=== PATIENT | male | born 1965 | race African-American/Black ===

== ENCOUNTER → 2021-03-11 | Day surgery (SDC) | payer OTHER ==
[~2021-03-11] MED LIST: AMLODIPINE BESY10 MG PO; ATORVASTATIN CA20 MG PO; HYGROTON25 MG PO; LIDOCAINE HCL 2% LOCAL INJ 5 ML SDV VIAL INJ ONE; PROPOFOL IV EMULSION 10 MG/ML 20 ML VIAL ONE
[2021-03-11 11:04] VITALS: BP 139/90
== END | disposition home or self-care (01) ==
LOC: OR 07:10
PROVIDERS: ATTEND Internal Medicine Gastroenterology
DX: K29.50 Unspecified chronic gastritis without bleeding (principal); D12.8 Benign neoplasm of rectum; K22.2 Esophageal obstruction; K21.00 Gastro-esophageal reflux disease with esophagitis, without bleeding; K44.9 Diaphragmatic hernia without obstruction or gangrene; K57.30 Diverticulosis of large intestine without perforation or abscess without bleeding; K64.8 Other hemorrhoids; Z71.3 Dietary counseling and surveillance; E66.3 Overweight; I10 Essential (primary) hypertension; R42 Dizziness and giddiness; Z01.810 Encounter for preprocedural cardiovascular examination; Z01.812 Encounter for preprocedural laboratory examination; Z20.822 Contact with and (suspected) exposure to COVID-19; Z68.26 Body mass index [BMI] 26.0-26.9, adult
CPT/HCPCS: 43239; 45380; 93005; J2001; J2704; U0002; 45378